=== PATIENT | male | born 1985 | race Caucasian/White ===

== ENCOUNTER 2020-02-12 15:01 | Emergency (ER) | payer SELFPAY ==
[~2020-02-12] VITALS: Ht 182.9 cm; Wt 74.8 kg
--- NOTE | 2020-02-12 15:02 | NUR ---
Patient BIBA ALS, transferred to bed 4. RN evaluating patient at bedside.
[2020-02-12 15:07] VITALS: BP 110/62
--- NOTE | 2020-02-12 15:13 | NUR ---
ambulated to restroom with steady gait
[2020-02-12 15:15] VITALS: BP 110/62
--- NOTE | 2020-02-12 15:29 | NUR ---
PT WENT TO [facility] AMB[facility] WITH STEADY GAIT.
--- NOTE | 2020-02-12 15:34 | NUR ---
brought in by ems from [employer] [facility] lot on [facility] was called for adult male slumped over in car with empty aerosol bottle empty in pt's hand. arousable upon ems arrival --- stool incontinence--- oriented to name place time and states does not know why ems brought him.Pt awake , alert, afibrile , ambulatory with steady gait , sce , cbs blf, flat soft nabs ,nontender. hx--denies rx---none
--- NOTE | 2020-02-12 15:35 | NUR ---
PT BACK IN BED , AWAKE , ALERT,SIDE RAILS UP X1 AND LOCK.
--- NOTE | 2020-02-12 15:38 | NUR ---
PT IN BED STATING WANTS TO GO HOME.
--- NOTE | 2020-02-12 15:44 | NUR ---
DR MCNAMARA AT BEDSIDE EVALUATING PT .
[2020-02-12] MEDS ORDERED: KETOROLAC 60 MG/2 ML VIAL IM ONE (15:50)
== END 2020-02-12 16:10 | disposition home or self-care (01) ==
LOC: MED 15:01
DX: R40.4 Transient alteration of awareness (principal); M79.10 Myalgia, unspecified site
CPT/HCPCS: 99283; J1885

== ENCOUNTER 2020-04-06 18:04 | Emergency (ER) | payer SELFPAY ==
[~2020-04-06] VITALS: Ht 175.3 cm; Wt 61.2 kg
[2020-04-06 18:26] VITALS: BP 124/65
--- NOTE | 2020-04-06 18:35 | NUR ---
PT BIBA C/O SEIZURE LIKE ACTIVITY. A&OX3. EMS STATES THAT PT WAS FOUND AT HOME BY PARENTS. PARENTS SAID THAT PT HAD "GRAND MAL" SEIZURE THAT LASTED 30 SECS. NO SEIZURE ACTIVITY DURING TRANSFER TO ER. PT HAS NO MEMORY OF SEIZURE. NO HEAD TRAUMA. NO TRAUMA TO MOUTH. MOTOR FUNCTION INTACT. PT HAS BEEN USING HEROINE FOR THE PAST 3 YEARS. BS 103. IV 20G IN LAC. PUPILS DIALETED 6MM. NO PMHX NKA, NKDA
--- NOTE | 2020-04-06 18:36 | NUR ---
DR GOLDBERG AT BEDSIDE.
[2020-04-06] MEDS ORDERED: NACL 0.9% 1,000 ML IV ONE (18:40)
--- NOTE | 2020-04-06 18:46 | NUR ---
LAB AT BEDSIDE.
--- NOTE | 2020-04-06 18:52 | NUR ---
XRAY AT BEDSIDE.
--- NOTE | 2020-04-06 18:55 | NUR ---
Patient taken to CT scan via gurney by [facility].
--- NOTE | 2020-04-06 19:04 | NUR ---
Patient returned from CT scan.
[2020-04-06 19:14] LABS: ALBUMIN 4.1 g/dL (3.4-5.0); ANION GAP 12.2 (8-16); ASPARTATE AMINOTRANSFERASE 54 U/L (15-37); CARBON DIOXIDE 26.6 mmol/L (21-32); CHLORIDE 102 mmol/L (98-107); CREATININE 1.1 mg/dL (0.6-1.3); GFR ARICAN-AMERICAN 99 mL/min (>90); GLUCOSE 119 mg/dL (74-106); POTASSIUM 3.8 mmol/L (3.5-5.1); SODIUM SERUM 137 mmol/L (136-145); TOTAL BILIRUBIN 0.5 mg/dL (0.0-1.0); UREA NITROGEN, BLOOD 5 mg/dL (7-18)
--- NOTE | 2020-04-06 19:25 | NUR ---
Pt report given to PELON CARABALLO. Transfer of care at this time.
[2020-04-06 19:41] LABS: BASOPHILS % (AUTO) 0.5 % (0.0-2.0); EOSINOPHILS # (AUTO) 0.1 K/uL (0-0.4); EOSINOPHILS % (AUTO) 1.3 % (0.0-4.0); HEMOGLOBIN 13.6 g/dL (12.0-18.0); LYMPHOCYTES # (AUTO) 1.1 K/uL (2.0-11.5); LYMPHOCYTES % (AUTO) 14.8 % (20.5-51.1); MEAN CORPUSCULAR HEMOGLOBIN 28 pg (27-31); MEAN CORPUSCULAR HGB CONC 33 g/dL (33-37); MEAN CORPUSCULAR VOLUME 83.2 fL (80-94); MONOCYTES # (AUTO) 0.3 K/uL (0.8-1.0); MONOCYTES % (AUTO) 3.6 % (1.7-9.3); NEUTROPHILS # (AUTO) 5.8 K/uL (1.8-7.7); NEUTROPHILS % (AUTO) 79.8 % (42.2-75.2); PLATELET COUNT (AUTO) 166 K/uL (140-450); RED BLOOD CELL COUNT(AUTO) 4.92 MIL/uL (4.20-6.10); RED CELL DISTRIBUTION WIDTH 13.7 % (11.6-13.7); WHITE BLOOD COUNT (AUTO) 7.2 K/uL (4.8-10.8)
--- NOTE | 2020-04-06 19:51 | NUR ---
MYKE (BROTHER) CONTACT INFO -- [phone]
--- NOTE | 2020-04-06 19:53 | NUR ---
URINE SAMPLE COLLECTED AND WALKED OVER TO LAB BY PELON LOPEZ. PTS VSS. PT A &O X 4, RR EVEN AND UNLABORED, ALL NEEDS MET AT THIS TIME WILL CONTINUE TO MONITOR.
[2020-04-06] MEDS ORDERED: LORazepam 2 MG/ML VIAL ONE (20:19)
--- NOTE | 2020-04-06 20:20 | NUR ---
TONIC CLONIC SEIZURE WITNESSED. REJI CHRISTINA AT [facility]. SZ LASTED APPROX 1 MINUTE. PT PLACED ON SIDE, SUCTION PREPARED AT BEDSIDE. ATIVAN GIVEN IVP.
[2020-04-06] MEDS ORDERED: LORazepam 2 MG/ML VIAL IVP ONE (20:30)
[2020-04-06 20:43] LABS: APPEARANCE,URINE CLEAR (CLEAR); BILIRUBIN,URINE NEGATIVE (NEGATIVE); BLOOD, URINE NEGATIVE (NEGATIVE); COLOR,URINE YELLOW (YELLOW); LEUKOCYTE ESTERASE ,URINE NEGATIVE (NEGATIVE); NITRITE, URINE NEGATIVE (NEGATIVE); PH,URINE 7.5 (5.0-9.0); UGLUCOSE NEGATIVE (NEGATIVE)
[2020-04-06 21:18] LABS: BARBITURATE, URINE NEGATIVE ng/ml (NEG <=200); BENZODIAZEPINE, URINE POSITIVE ng/mL (NEG <=200); CANNABINOID, URINE POSITIVE ng/mL (NEG <=50); COCAINE, URINE NEGATIVE ng/mL (NEG <=300); PHENCYCLIDINE SCREEN,URINE NEGATIVE ng/mL (NEG <=25)
[2020-04-06 21:19] LABS: OPIATE, URINE POSITIVE ng/mL (NEG <=2000)
--- NOTE | 2020-04-06 21:28 | NUR ---
DR. CHRISTINA AT BEDSIDE RE-EVALUATING PT.
--- NOTE | 2020-04-06 21:41 | NUR ---
BROTHER MYKE CALLED AND TRANSFERRED TO DR. CHRISTINA FOR UPDATE
--- NOTE | 2020-04-06 21:49 | NUR ---
PER BROTHER, PT SMOKED MARIJUANA/ EDIBLES, PT DOES HEROINE AND INTERMITENTLY INHALES A CLEANING PRODUCT. BROTHER REPORTS HE HAS NOT INHALED THE CLEANING PRODUCT X 1 WEEK. BROTHER ALSO REPORTS HE WAS GIVEN ATIVAN BY AN MD AND HAS BEEN TAKING IT.
[2020-04-06] MEDS ORDERED: levETIRAcetam 500 MG TAB PO ONE (21:55)
[2020-04-06 22:42] VITALS: BP 108/60
--- NOTE | 2020-04-06 22:42 | NUR ---
Patient discharged with v/s stable. Written and verbal after care instructions given and explained. Patient alert, oriented and verbalized understanding of instructions. Ambulatory with steady gait. All questions addressed prior to discharge. ID band removed. Patient advised to follow up with PMD. Rx of KEKARL given. Patient educated on indication of medication including possible reaction and side effects. Opportunity to ask questions provided and answered.
== END 2020-04-06 22:42 | disposition home or self-care (01) ==
LOC: MED 18:04
DX: R56.9 Unspecified convulsions (principal); F11.90 Opioid use, unspecified, uncomplicated; R60.9 Edema, unspecified
CPT/HCPCS: 36415; 70450; 71045; 80053; 80305; 81003; 85025; 93005; 96374; 99285; G0482; J2060; J7030; Q0092